=== PATIENT | male | born 1980 | race Caucasian/White ===

== ENCOUNTER 2019-05-03 11:46 | Inpatient (IN) | payer OTHER ==
[~2019-05-03] VITALS: Ht 185.4 cm; Wt 77.0 kg
--- NOTE | 2019-05-03 12:21 | NUR ---
TASK RN: PT SENT HERE FROM [facility] FOR BACK PAIN. PT STATES BACK PAIN STARTED A FEW WEEKS AGO AND HAS GOTTEN WORSE THE PAST FEW DAYS W N/T IN LOWER LEGS, DIFFICULTY AMBULATING, LOST CONTROL OF BLADDER. PT SITTING ON GURNEY, DENIES ANY RECENT FALLS OR TRAUMA.
--- NOTE | 2019-05-03 13:34 | NUR ---
PT RESTING IN [facility]. PT'S AOX4. RESPS EVEN AND UNLABORED. BP/SPO2 MONITORS IN PLACE. CALL LIGHT WITHIN REACH.
--- NOTE | 2019-05-03 14:52 | NUR ---
[place] [facility]. PT'S AOX4. RESPS EVEN AND UNLABORED. BP/SPO2 MONITORS IN PLACE. CALL LIGHT WITHIN REACH.
[2019-05-03] MEDS ORDERED: SODIUM CHLORIDE FLUSH 10ML SYR IVF ONE (15:30)
--- NOTE | 2019-05-03 15:54 | NUR ---
PIV EST BY THIS RN. XRAY IN ROOM.
--- NOTE | 2019-05-03 15:55 | NUR ---
REPORT GIVEN TO MAXIMILIANO JHAVERI AT OR. ALL QUESTIONS ANSWERED.
--- NOTE | 2019-05-03 16:03 | NUR ---
EKG DONE AT BEDSIDE BY EMT.
[2019-05-03] MEDS ORDERED: THROMBIN (RECOMBINANT) 5,000 UNIT VIAL TP ONE (16:06)
[2019-05-03] MEDS ORDERED: BUPIVACAINE/PF 0.5% ONE (16:06)
[2019-05-03] MEDS ORDERED: BACITRACIN 50,000 UNIT ONE (16:06)
[2019-05-03] MEDS ORDERED: EPINEPHRINE 1 MG/ML, 1ML ONE (16:06)
[2019-05-03 16:17] LABS: BASOPHILS # (AUTO) 0.07 x10^3/uL (0-0.1); BASOPHILS % (AUTO) 1 % (0-1); EOSINOPHILS # (AUTO) 0.34 x10^3/uL (0-0.4); EOSINOPHILS % (AUTO) 6 % (1-7); LYMPHOCYTES # (AUTO) 2.56 x10^3/uL (1-3.4); LYMPHOCYTES % (AUTO) 41 % (22-44); MD NO; MEAN CORPUSCULAR HEMOGLOBIN 30.1 pg (27.5-34.5); MEAN CORPUSCULAR HGB CONC 33.4 g/dL (33.2-36.2); MEAN CORPUSCULAR VOLUME 90.1 fL (81-97); MEAN PLATELET VOLUME 7.4 fL (7.4-10.4); MONOCYTES % (AUTO) 6 % (2-9); NEUTROPHILS # (AUTO) 2.84 x10^3/uL (1.8-6.8); NEUTROPHILS % (AUTO) 46 % (42-75); PLATELET COUNT 241 x10^3/uL (130-400); RED BLOOD COUNT 5.08 x10^6/uL (4.38-5.82); RED CELL DISTRIBUTION WIDTH 13.6 % (9.4-14.8)
[2019-05-03 16:28] LABS: ALBUMIN 3.9 g/dL (3.4-5.0); ANION GAP 4 mmol/L (5-15); CALCIUM 8.5 mg/dL (8.5-10.1); CHLORIDE 105 mmol/L (98-107); CREATININE 0.85 mg/dL (0.7-1.3)
[2019-05-03] MEDS ORDERED: FENTANYL PF 250 MCG/5ML ONE ×2 (16:31→16:40)
[2019-05-03] MEDS ORDERED: MEPERIDINE/PF 100 MG/ML ONE (18:12)
[2019-05-03] MEDS ORDERED: ROCURONIUM 10MG/ML,5ML ONE (18:23)
[2019-05-03] MEDS ORDERED: NEOSTIGMINE 1 MG/ML, 10ML ONE (18:23)
[2019-05-03] MEDS ORDERED: ONDANSETRON 2MG/ML, 2ML ONE (18:23)
[2019-05-03] MEDS ORDERED: DEXAMETHASONE 4 MG/ML, 1ML ONE (18:23)
[2019-05-03] MEDS ORDERED: PROPOFOL 10 MG/ML, 20ML ONE (18:23)
[2019-05-03] MEDS ORDERED: CEFAZOLIN 1,000 MG ONE (18:23)
[2019-05-03] MEDS ORDERED: SUCCINYLCHOLINE 20 MG/ML, 10ML ONE (18:23)
[2019-05-03] MEDS ORDERED: GLYCOPYRROLATE 0.2MG/1ML, 5ML ONE (18:23)
[2019-05-03] MEDS ORDERED: PROMETHAZINE 25 MG/ML, 1ML IV PRN (18:30)
[2019-05-03] MEDS ORDERED: OXYcodone 5 MG/5 ML ORAL.SOL UDC PO PRN (18:30)
[2019-05-03] MEDS ORDERED: HALOPERIDOL 5 MG/ML IV PRN (18:30)
[2019-05-03] MEDS ORDERED: DIAZEPAM 5 MG/ML, 2ML IVPush PRN (18:30)
[2019-05-03] MEDS ORDERED: hydrALAzine 20 MG/ML, 1ML IV PRN (18:30)
[2019-05-03] MEDS ORDERED: HYDROcodone/APAP 7.5-325MG/15ML UDC PO PRN (18:30)
[2019-05-03] MEDS ORDERED: LABETALOL 5MG/ML, 20ML IV PRN (18:30)
[2019-05-03] MEDS ORDERED: MEPERIDINE/PF 25MG/ML,1ML IVPush PRN (18:30)
[2019-05-03] MEDS ORDERED: MEPERIDINE/PF 25MG/ML,1ML ONE (18:36)
[2019-05-03] MEDS ORDERED: FENTANYL PF 100 MCG/2ML ONE (18:36)
[2019-05-03] MEDS: FENTANYL PF 100 MCG/2ML IV PRN ×2 (18:44→18:52)
[2019-05-03] MEDS ORDERED: OXYcodone 5 MG/5 ML ORAL.SOL UDC ONE (18:53)
[2019-05-03] MEDS ORDERED: HYDROmorphone 1 MG/ML, 1ML INJ ONE (18:53)
[2019-05-03] MEDS: HYDROmorphone 1 MG/ML, 1ML INJ IVPush PRN ×2 (19:01→19:12)
[2019-05-03 20:10] VITALS: BP 131/76
[2019-05-03 20:54] VITALS: BP 131/76
[2019-05-03] MEDS ORDERED: DIPHENHYDRAMINE 50 MG/ML, 1ML IVPush PRN (21:00)
[2019-05-03] MEDS ORDERED: OXYcodone/APAP 5/325MG TABLET PO PRN (21:00)
[2019-05-03] MEDS ORDERED: DIPHENHYDRAMINE 25 MG CAPSULE PO PRN (21:00)
[2019-05-03] MEDS ORDERED: ONDANSETRON 2MG/ML, 2ML IV PRN (21:00)
[2019-05-03] MEDS ORDERED: DIPHENHYDRAMINE 50 MG/ML, 1ML IM PRN (21:00)
[2019-05-03] MEDS ORDERED: MAGNESIUM HYDROXIDE 8%, 30ML UDC PO PRN (21:00)
[2019-05-03] MEDS ORDERED: PHARMACY MAY ADJ FOR RENAL FX MC PRN (21:00)
[2019-05-03] MEDS ORDERED: BISACODYL 10 MG SUPP PR PRN (21:00)
[2019-05-03] MEDS ORDERED: ZOLPIDEM 5MG TABLET PO PRN (21:00)
[2019-05-03] MEDS: METHOCARBAMOL 750 MG TABLET PO PRN (21:36)
[2019-05-03] MEDS: NS + 20MEQ KCL 1,000 ML IV SCH (21:36)
[2019-05-04 00:10] VITALS: BP 105/66
[2019-05-04] MEDS: CEFAZOLIN PMX 1GM/50ML 50 ML IVPB SCH ×2 (00:37→08:33)
[2019-05-04 04:04] VITALS: BP 102/62
[2019-05-04] MEDS: METHOCARBAMOL 750 MG TABLET PO PRN (05:36)
[2019-05-04 07:23] VITALS: BP_SYST 85; BP_SYST 90; BP_DIAS 45; BP_DIAS 50
[2019-05-04] MEDS ORDERED: METH750T2 PO (08:27)
[2019-05-04] MEDS ORDERED: OXYcodone/APAP 5/325MG PO (08:27)
[2019-05-04] MEDS: NS + 20MEQ KCL 1,000 ML IV SCH (08:34)
[2019-05-04] MEDS ORDERED: SENNA/DOCUSATE TABLET PO SCH (09:00)
== END 2019-05-04 11:29 | disposition home or self-care (01) | DRG 519 ==
LOC: ED 13:10 → EDIP 15:33 → 4NE 20:15 → DCLOUNGE 05-04 11:18
PROVIDERS: ADMIT Neurological Surgery; ATTEND Neurological Surgery
PROC: 01NB0ZZ Release Lumbar Nerve, Open Approach (ICD-10-PCS; 2019-05-03)
PROC: 0SB20ZZ Excision of Lumbar Vertebral Disc, Open Approach (ICD-10-PCS; 2019-05-03)
PROC: 00QT0ZZ Repair Spinal Meninges, Open Approach (ICD-10-PCS; 2019-05-03)
PROC: 00NY0ZZ Release Lumbar Spinal Cord, Open Approach (ICD-10-PCS; principal; 2019-05-03 16:00)
DX: M51.16 Intervertebral disc disorders with radiculopathy, lumbar region (principal); G96.0 Cerebrospinal fluid leak; R32 Unspecified urinary incontinence; Z87.891 Personal history of nicotine dependence
CPT/HCPCS: 36415; 72100; 99285; S0020; 71045; 80048; 82040; 85025; 93005; G0378; J0171; J0690; J1100; J1170; J2270; J2405; J2704; J2710; J3010; J3480; C1781; J0330; J2175

== ENCOUNTER 2019-05-19 23:18 | Inpatient (IN) | payer MEDICAID ==
[~2019-05-19] VITALS: Ht 185.4 cm; Wt 71.6 kg
[~2019-05-19 23:18] MED LIST: METH750T2 PO; OXYcodone/APAP 5/325MG PO
[2019-05-20] MEDS ORDERED: BUPR-86 PO (00:11)
[2019-05-20 00:17] LABS: BASOPHILS # (AUTO) 0.03 x10^3/uL (0-0.1); BASOPHILS % (AUTO) 0 % (0-1); EOSINOPHILS # (AUTO) 0.14 x10^3/uL (0-0.4); EOSINOPHILS % (AUTO) 2 % (1-7); LYMPHOCYTES # (AUTO) 2.82 x10^3/uL (1-3.4); LYMPHOCYTES % (AUTO) 29 % (22-44); MD NO; MEAN CORPUSCULAR HEMOGLOBIN 29.9 pg (27.5-34.5); MEAN CORPUSCULAR HGB CONC 33.5 g/dL (33.2-36.2); MEAN CORPUSCULAR VOLUME 89.4 fL (81-97); MEAN PLATELET VOLUME 7.4 fL (7.4-10.4); MONOCYTES % (AUTO) 8 % (2-9); NEUTROPHILS # (AUTO) 6.12 x10^3/uL (1.8-6.8); NEUTROPHILS % (AUTO) 62 % (42-75); PLATELET COUNT 351 x10^3/uL (130-400); RED BLOOD COUNT 4.75 x10^6/uL (4.38-5.82); RED CELL DISTRIBUTION WIDTH 14.1 % (9.4-14.8)
[2019-05-20 00:29] LABS: ALANINE AMINOTRANSFERASE 25 U/L (12-78); ALBUMIN 3.5 g/dL (3.4-5.0); ANION GAP 6 mmol/L (5-15); CALCIUM 8.5 mg/dL (8.5-10.1); CHLORIDE 104 mmol/L (98-107); CREATININE 0.77 mg/dL (0.7-1.3)
[2019-05-20] MEDS ORDERED: POTASSIUM CHLORIDE 10 MEQ in SODIUM CHLORIDE 0.9% 1,000 ML IV ONE (00:30)
[2019-05-20 00:31] LABS: ALKALINE PHOSPHATASE 75 U/L (45-117); BILIRUBIN,TOTAL 0.4 mg/dL (0.2-1.0); TOTAL PROTEIN 6.7 g/dL (6.4-8.2)
--- NOTE | 2019-05-20 00:38 | NUR ---
report to aissatou rosas
[2019-05-20] MEDS ORDERED: ONDANSETRON 2MG/ML, 2ML ONE (00:42)
[2019-05-20] MEDS ORDERED: MORPHINE SULFATE 4 MG/ML, 1ML ONE (00:42)
[2019-05-20] MEDS ORDERED: ONDANSETRON 2MG/ML, 2ML IVPush ONE (01:00)
[2019-05-20] MEDS ORDERED: hydrALAzine 20 MG/ML, 1ML IVPush PRN (01:00)
[2019-05-20] MEDS ORDERED: morphine SULFATE 10 MG/ML, 1ML IVPush ONE (01:00)
[2019-05-20] MEDS ORDERED: ACETAMINOPHEN 325 MG TABLET PO PRN (01:00)
[2019-05-20] MEDS ORDERED: ONDANSETRON 2MG/ML, 2ML IVPush PRN (01:00)
--- NOTE | 2019-05-20 01:01 | NUR ---
[id number] in 1lns has not arrived by the time pt departed ed.
[2019-05-20 01:30] VITALS: BP 98/58
[2019-05-20] MEDS ORDERED: LACTATED RINGERS 1,000 ML IV SCH (01:30)
[2019-05-20] MEDS: OXYcodone IR 5MG TABLET PO PRN ×6 (01:55→20:59)
[2019-05-20] MEDS ORDERED: DIAZEPAM 5 MG TABLET PO PRN ×2 (05:00→17:30)
[2019-05-20] MEDS: morphine SULFATE 10 MG/ML, 1ML IVPush PRN ×2 (05:43→08:55)
[2019-05-20 06:04] LABS: BASOPHILS # (AUTO) 0.05 x10^3/uL (0-0.1); BASOPHILS % (AUTO) 1 % (0-1); EOSINOPHILS # (AUTO) 0.25 x10^3/uL (0-0.4); EOSINOPHILS % (AUTO) 2 % (1-7); LYMPHOCYTES # (AUTO) 3.91 x10^3/uL (1-3.4); LYMPHOCYTES % (AUTO) 38 % (22-44); MD NO; MEAN CORPUSCULAR HEMOGLOBIN 29.9 pg (27.5-34.5); MEAN CORPUSCULAR HGB CONC 32.9 g/dL (33.2-36.2); MEAN CORPUSCULAR VOLUME 90.8 fL (81-97); MEAN PLATELET VOLUME 7.4 fL (7.4-10.4); MONOCYTES # (AUTO) 0.89 x10^3/uL (0.2-0.8); MONOCYTES % (AUTO) 9 % (2-9); NEUTROPHILS # (AUTO) 5.18 x10^3/uL (1.8-6.8); NEUTROPHILS % (AUTO) 50 % (42-75); PLATELET COUNT 339 x10^3/uL (130-400); RED BLOOD COUNT 4.62 x10^6/uL (4.38-5.82)
[2019-05-20 06:17] LABS: ANION GAP 6 mmol/L (5-15); CALCIUM 7.9 mg/dL (8.5-10.1); CHLORIDE 103 mmol/L (98-107); CREATININE 0.74 mg/dL (0.7-1.3)
[2019-05-20 07:22] VITALS: BP 100/65
[2019-05-20] MEDS: SENNA/DOCUSATE TABLET PO SCH (08:55)
[2019-05-20] MEDS: DIAZEPAM 5 MG/ML, 2ML IV PRN ×2 (09:27→09:55)
[2019-05-20] MEDS ORDERED: GADOTERATE 7.5 MMOL/15 ML SYR ONE (10:00)
[2019-05-20] MEDS ORDERED: DIAZEPAM 10 MG TABLET PO PRN ×2 (10:30→22:30)
[2019-05-20 12:29] VITALS: BP 112/68
[2019-05-20] MEDS: DIAZEPAM 5 MG TABLET PO PRN ×2 (17:10→23:17)
[2019-05-20 19:14] VITALS: BP 95/59
[2019-05-21 00:24] VITALS: BP 105/69
[2019-05-21] MEDS: OXYcodone IR 5MG TABLET PO PRN ×2 (01:18→05:56)
[2019-05-21] MEDS ORDERED: MORPHINE SULFATE 4 MG/ML, 1ML ONE (03:35)
[2019-05-21] MEDS: morphine SULFATE 10 MG/ML, 1ML IVPush PRN (03:37)
[2019-05-21 05:05] LABS: BASOPHILS # (AUTO) 0.03 x10^3/uL (0-0.1); BASOPHILS % (AUTO) 0 % (0-1); EOSINOPHILS # (AUTO) 0.33 x10^3/uL (0-0.4); EOSINOPHILS % (AUTO) 4 % (1-7); LYMPHOCYTES # (AUTO) 3.66 x10^3/uL (1-3.4); LYMPHOCYTES % (AUTO) 44 % (22-44); MD NO; MEAN CORPUSCULAR HEMOGLOBIN 29.6 pg (27.5-34.5); MEAN CORPUSCULAR HGB CONC 32.7 g/dL (33.2-36.2); MEAN CORPUSCULAR VOLUME 90.4 fL (81-97); MEAN PLATELET VOLUME 7.6 fL (7.4-10.4); MONOCYTES # (AUTO) 0.58 x10^3/uL (0.2-0.8); MONOCYTES % (AUTO) 7 % (2-9); NEUTROPHILS # (AUTO) 3.73 x10^3/uL (1.8-6.8); NEUTROPHILS % (AUTO) 45 % (42-75); PLATELET COUNT 295 x10^3/uL (130-400); RED BLOOD COUNT 5.03 x10^6/uL (4.38-5.82); RED CELL DISTRIBUTION WIDTH 14.1 % (9.4-14.8)
[2019-05-21 05:08] LABS: INTERNATIONAL NORMALIZED RATIO 0.98 (0.93-1.1); PROTHROMBIN TIME 10.4 Seconds (9.6-11.5)
[2019-05-21] MEDS: DIAZEPAM 5 MG TABLET PO PRN ×3 (05:56→20:13)
[2019-05-21 07:33] VITALS: BP 110/72
[2019-05-21] MEDS: SENNA/DOCUSATE TABLET PO SCH (09:15)
[2019-05-21] MEDS ORDERED: MIDAZOLAM 1 MG/ML, 2ML ONE ×2 (09:23→11:38)
[2019-05-21] MEDS ORDERED: FENTANYL PF 250 MCG/5ML ONE ×3 (09:23→10:26)
[2019-05-21] MEDS ORDERED: PROPOFOL 10 MG/ML, 20ML ONE (09:24)
[2019-05-21] MEDS ORDERED: SUCCINYLCHOLINE 20 MG/ML, 10ML ONE (09:25)
[2019-05-21] MEDS ORDERED: CEFAZOLIN 1,000 MG ONE ×2 (09:25)
[2019-05-21] MEDS ORDERED: DEXAMETHASONE 4 MG/ML, 1ML ONE ×2 (09:25)
[2019-05-21] MEDS ORDERED: ROCURONIUM 10MG/ML,5ML ONE (09:25)
[2019-05-21] MEDS ORDERED: EPINEPHRINE 1 MG/ML, 1ML ONE (09:28)
[2019-05-21] MEDS ORDERED: BUPIVACAINE/PF 0.5% ONE (09:28)
[2019-05-21] MEDS ORDERED: BACITRACIN 50,000 UNIT ONE (09:28)
[2019-05-21] MEDS ORDERED: FENTANYL PF 100 MCG/2ML ONE ×4 (10:26→11:31)
[2019-05-21] MEDS ORDERED: KETOROLAC 30 MG/1 ML ONE (10:27)
[2019-05-21] MEDS ORDERED: ONDANSETRON 2MG/ML, 2ML ONE (10:27)
[2019-05-21] MEDS ORDERED: LIDOCAINE-MPF 2% ,5ML ONE ×2 (10:29→10:30)
[2019-05-21] MEDS ORDERED: PROMETHAZINE 25 MG/ML, 1ML IV PRN (10:30)
[2019-05-21] MEDS ORDERED: MEPERIDINE/PF 25MG/ML,1ML IVPush PRN (10:30)
[2019-05-21] MEDS ORDERED: OXYcodone 5 MG/5 ML ORAL.SOL UDC PO PRN (10:30)
[2019-05-21] MEDS ORDERED: HALOPERIDOL 5 MG/ML IV PRN (10:30)
[2019-05-21] MEDS ORDERED: MIDAZOLAM 1 MG/ML, 2ML IV PRN (10:30)
[2019-05-21] MEDS ORDERED: LABETALOL 5MG/ML, 20ML IV PRN (10:30)
[2019-05-21] MEDS ORDERED: ALBUTEROL SULFATE 2.5 MG/3 ML NPPB PRN (10:30)
[2019-05-21] MEDS ORDERED: ACETAMINOPHEN 325 MG TABLET PO PRN (10:30)
[2019-05-21] MEDS ORDERED: EPHEDRINE 50 MG/ML, 1ML IVPush PRN (10:30)
[2019-05-21] MEDS ORDERED: PROMETHAZINE 12.5 MG SUPP PR PRN (10:30)
[2019-05-21] MEDS ORDERED: ONDANSETRON 2MG/ML, 2ML IV PRN (10:30)
[2019-05-21] MEDS ORDERED: DIAZEPAM 5 MG/ML, 2ML IVPush PRN (10:30)
[2019-05-21] MEDS ORDERED: hydrALAzine 20 MG/ML, 1ML IV PRN (10:30)
[2019-05-21] MEDS ORDERED: ONDANSETRON ODT 8 MG PO PRN (10:30)
[2019-05-21] MEDS ORDERED: OXYcodone 5 MG/5 ML ORAL.SOL UDC ONE (11:19)
[2019-05-21] MEDS ORDERED: ACETAMINOPHEN 650 MG/20.3 ML UDC ONE (11:19)
[2019-05-21] MEDS: FENTANYL PF 100 MCG/2ML IV PRN ×2 (11:25→11:30)
[2019-05-21] MEDS ORDERED: HYDROmorphone 1 MG/ML, 1ML INJ ONE ×3 (11:31→12:09)
[2019-05-21] MEDS: HYDROmorphone 2 MG/ML, 1ML IVPush PRN ×5 (11:35→12:10)
[2019-05-21 12:58] VITALS: BP 110/71
[2019-05-21] MEDS ORDERED: DIPHENHYDRAMINE 50 MG/ML, 1ML IVPush PRN (13:30)
[2019-05-21] MEDS ORDERED: DIPHENHYDRAMINE 50 MG/ML, 1ML IM PRN (13:30)
[2019-05-21] MEDS ORDERED: DIPHENHYDRAMINE 25 MG CAPSULE PO PRN (13:30)
[2019-05-21] MEDS: NS + 20MEQ KCL 1,000 ML IV SCH (14:09)
[2019-05-21] MEDS: CEFAZOLIN PMX 1GM/50ML 50 ML IVPB SCH (17:22)
[2019-05-21 20:45] VITALS: BP 93/54
[2019-05-21] MEDS ORDERED: ZOLPIDEM 5MG TABLET PO PRN (21:00)
[2019-05-21 23:50] VITALS: BP 95/59
[2019-05-22] MEDS: CEFAZOLIN PMX 1GM/50ML 50 ML IVPB SCH (00:58)
[2019-05-22 03:50] VITALS: BP 96/58
[2019-05-22] MEDS: DIAZEPAM 5 MG TABLET PO PRN (03:50)
[2019-05-22 06:44] VITALS: BP 98/61
[2019-05-22] MEDS ORDERED: OXYC-307 PO ×2 (08:29→09:58)
[2019-05-22] MEDS ORDERED: CYCLOBENZAPRINE 10 MG TABLET PO PRN (08:30)
[2019-05-22] MEDS ORDERED: OXYcodone/APAP 10/325MG TABLET PO PRN (08:30)
[2019-05-22] MEDS ORDERED: BUPROPION SR 150 MG TABLET PO SCH (09:00)
[2019-05-22] MEDS: SENNA/DOCUSATE TABLET PO SCH (09:00)
[2019-05-22] MEDS: NS + 20MEQ KCL 1,000 ML IV SCH (09:30)
[2019-05-22] MEDS ORDERED: CYCL-259 PO (09:59)
[2019-05-22 12:24] VITALS: BP_SYST 118; BP_SYST 98; BP_DIAS 64
== END 2019-05-22 13:20 | disposition home or self-care (01) | DRG 30 ==
LOC: ED 23:34 → EDIP 23:48 → 4NE 05-20 01:10 → DCLOUNGE 05-22 13:15
PROVIDERS: ADMIT Family Medicine; ATTEND Hospitalist
PROC: 00UT0KZ Supplement Spinal Meninges with Nonautologous Tissue Substitute, Open Approach (ICD-10-PCS; principal; 2019-05-21 09:30)
DX: G97.82 Other postprocedural complications and disorders of nervous system (principal); Y83.8 Other surgical procedures as the cause of abnormal reaction of the patient, or of later complication, without mention of misadventure at the time of the procedure; Y92.098 Other place in other non-institutional residence as the place of occurrence of the external cause; F12.10 Cannabis abuse, uncomplicated; F40.240 Claustrophobia; G89.29 Other chronic pain; G96.19 Other disorders of meninges, not elsewhere classified; M54.9 Dorsalgia, unspecified; M54.5 Low back pain; Z87.891 Personal history of nicotine dependence
CPT/HCPCS: 36415; 99285; J3490; S0020; 72158; 80048; 80053; 85025; 85610; C1713; G0378; J0171; J0690; J1100; J1170; J1885; J2250; J2270; J2405; J2704; J3010; J3360; J3480; A9575; C1781; J0330; J7120